=== PATIENT | male | born 1995 | race Caucasian/White ===

== ENCOUNTER 2020-03-15 09:53 | Emergency (ER) | payer BC, MEDICAID ==
[~2020-03-15] VITALS: Ht 175.3 cm; Wt 84.5 kg
--- NOTE | 2020-03-15 10:05 | NUR ---
AMBULATORY TO ED ROOM 17 W/ STEADY GAIT
--- NOTE | 2020-03-15 10:24 | NUR ---
AMBULATORY TO & FROM [facility] W/OUT INCIDENT; GAIT STEADY. VOIDED SPECIMEN PROVIDED.
[2020-03-15] MEDS ORDERED: ONDANSETRON 2MG/ML, 2ML ONE (10:45)
[2020-03-15] MEDS ORDERED: MAALOX/HYOSCYAMINE/LIDOCAINE 45 ML BTL ONE (10:45)
--- NOTE | 2020-03-15 10:50 | NUR ---
C/O GENERAL ABD PAIN - "DIFFERENT" FROM USUAL ABD PAIN. VOMITED THIS AM. LAST ORAL: 11/28 BANANA AT 0830. NO MEDS TAKEN FOR SX.
[2020-03-15] MEDS ORDERED: MAALOX/HYOSCYAMINE/LIDOCAINE 45 ML BTL PO ONE (11:00)
[2020-03-15] MEDS ORDERED: ONDANSETRON 2MG/ML, 2ML IVPush ONE (11:00)
[2020-03-15] MEDS ORDERED: SODIUM CHLORIDE FLUSH 10ML SYR IVF ONE (11:00)
[2020-03-15] MEDS ORDERED: SODIUM CHLORIDE 0.9% 1,000ML IVBOLUS ONE (11:00)
--- NOTE | 2020-03-15 11:02 | NUR ---
PIV INITIATED, NS BOLUS HUNG. PT MEDICATED PER EMAR. PT REPORTS IMPROVEMENT IN ABD PAIN POST GI COCKTAIL.
[2020-03-15 11:16] LABS: ALANINE AMINOTRANSFERASE 23 U/L (12-78); ALBUMIN 4.2 g/dL (3.4-5.0); ANION GAP 4 mmol/L (5-15); CALCIUM 8.7 mg/dL (8.5-10.1); CHLORIDE 111 mmol/L (98-107); CREATININE 1.06 mg/dL (0.7-1.3)
[2020-03-15 11:18] LABS: ALKALINE PHOSPHATASE 46 U/L (45-117); BILIRUBIN,TOTAL 0.4 mg/dL (0.2-1.0); TOTAL PROTEIN 7.7 g/dL (6.4-8.2)
[2020-03-15 11:23] LABS: MICROSCOPIC NOT IND
[2020-03-15 11:23] LABS: BASOPHILS # (AUTO) 0.02 x10^3/uL (0-0.1); BASOPHILS % (AUTO) 0 % (0-1); EOSINOPHILS # (AUTO) 0.03 x10^3/uL (0-0.4); EOSINOPHILS % (AUTO) 0 % (1-7); LYMPHOCYTES % (AUTO) 7 % (22-44); MD NO; MEAN CORPUSCULAR HEMOGLOBIN 30.4 pg (27.5-34.5); MEAN CORPUSCULAR HGB CONC 33.5 g/dL (33.2-36.2); MEAN CORPUSCULAR VOLUME 90.8 fL (81-97); MEAN PLATELET VOLUME 9.2 fL (7.4-10.4); MONOCYTES # (AUTO) 0.67 x10^3/uL (0.2-0.8); MONOCYTES % (AUTO) 6 % (2-9); NEUTROPHILS % (AUTO) 88 % (42-75); PLATELET COUNT 192 x10^3/uL (130-400); RED BLOOD COUNT 5.84 x10^6/uL (4.38-5.82); RED CELL DISTRIBUTION WIDTH 12.7 % (9.4-14.8)
[2020-03-15 11:34] LABS: CULTURE INDICATED? NO
[2020-03-15 12:16] VITALS: BP 110/58
== END 2020-03-15 12:47 | disposition home or self-care (01) ==
LOC: ED 10:14
DX: K58.0 Irritable bowel syndrome with diarrhea (principal); R11.2 Nausea with vomiting, unspecified
CPT/HCPCS: 36415; 80053; 81003; 83690; 85025; 96361; 96374; 99283; J2405; J7030